=== PATIENT | male | born 1955 | race Caucasian/White ===

== ENCOUNTER 2020-02-27 14:52 | Inpatient (IN) | payer OTHER ==
[~2020-02-27] VITALS: Ht 175.3 cm; Wt 64.2 kg
[~2020-02-27 14:52] MED LIST: ALPRAZOLAM ER1 MG PO; BANOPHEN25 MG PO; BUPROPION XL300 MG PO; BUSPIRONE PO; CLEOCIN HCL300 MG PO; DEPAKOTE ER500 M1 PO; DIVALPROEX SOD500 M1 PO; GENTLE LAXATIVE5 M1 PO; LEVO-T25 MCG PO; LEVOTHYROXINE PO; MAPAP ARTHRITI650 MG PO; MELATONIN10 M3 PO; MELOXICAM15 MG PO; MILK OF MA400 MG/5 M PO; MIRALAX119 GM PO; OLANZAPINE-FLU1 EACH PO; PROTONIX40 MG PO; PROZAC10 M1 PO; PROZAC20 M1 PO; TOPAMAX100 MG PO; TRAZODONE 150150 M1 PO; TRAZODONE HCL100 MG PO; WELLBUTRIN XL150 MG PO; ZESTRIL20 MG PO; ZYPREXA 5 MG TAB5 M1 PO; ZYPREXA20 MG PO
[2020-02-27 17:01] VITALS: BP 141/95
[2020-02-27 19:47] VITALS: BP 114/72
[2020-02-27 20:45] VITALS: BP 114/72
[2020-02-28 09:17] VITALS: BP 133/86
[2020-02-28 20:48] VITALS: BP 144/83
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
[2020-02-29 07:46] VITALS: BP 132/78
[2020-03-01 07:40] VITALS: BP 107/70
[2020-03-01 20:23] VITALS: BP 131/80
[2020-03-02 07:34] VITALS: BP 106/66
[2020-03-02 19:45] VITALS: BP 137/77
[2020-03-02 19:50] VITALS: BP 137/77
[2020-03-02 20:30] VITALS: BP 106/66
[2020-03-03 19:47] VITALS: BP 118/67
[2020-03-03 20:20] VITALS: BP 118/67
[2020-03-04 09:08] VITALS: BP 110/71
[2020-03-04 13:51] LABS: ABSOLUTE NEUTROPHILS 2.3 thou/uL (1.4-8.2); EOSINOPHILS 2.1 % (0.0-3.0); HEMATOCRIT 42.9 % (42.0-52.0); HEMOGLOBIN 14.4 gm/dL (14.0-18.0); LYMPHOCYTES 42.2 % (24.0-44.0); MCH 33.5 pg (26.0-34.0); MCHC 33.5 g/dL (28.0-37.0); MCV 99.9 fL (80.0-100.0); MONOCYTES 7.3 % (1.0-8.0); PLATELET COUNT 146 thou/uL (150-400); POLYS 47.4 % (36.0-66.0); RBC 4.29 mil/uL (4.50-6.00); RDW 13.9 % (10.5-14.5); WBC 4.9 thou/uL (4.0-11.0)
[2020-03-04 13:54] LABS: ALBUMIN 3.8 g/dL (3.4-5.0); CALCIUM 9.6 mg/dL (8.5-10.1); CREATININE 1.1 mg/dL (0.7-1.3); MAGNESIUM 2.5 mg/dL (1.8-2.4); POTASSIUM 4.4 mmol/L (3.5-5.1); TOTAL BILIRUBIN 0.3 mg/dL (0.2-1.0); TOTAL PROTEIN 7.7 g/dL (6.4-8.2)
[2020-03-04 14:21] LABS: TSH 0.833 uIU/mL (0.358-3.740)
[2020-03-04 19:17] VITALS: BP 127/77
[2020-03-04 23:02] VITALS: BP 127/77
[2020-03-05 09:13] VITALS: BP 119/81
[2020-03-05 20:47] VITALS: BP 151/85
[2020-03-06 09:16] VITALS: BP 115/72
[2020-03-06 20:05] VITALS: BP 113/71
[2020-03-07 06:20] VITALS: BP 128/80
[2020-03-07 13:29] VITALS: BP 144/88
[2020-03-07 19:51] VITALS: BP 146/91
[2020-03-07 21:30] VITALS: BP 146/91
[2020-03-08 07:38] VITALS: BP 97/64
[2020-03-08 22:30] VITALS: BP 120/70
[2020-03-09 07:00] VITALS: BP 95/31
[2020-03-09 20:23] VITALS: BP 145/84
[2020-03-10 08:49] VITALS: BP 110/77
[2020-03-10] MEDS ORDERED: DEPAKOTE500 MG PO (08:59)
[2020-03-10] MEDS ORDERED: TRAZODONE HCL50 MG PO (09:00)
[2020-03-10] MEDS ORDERED: ZYPREXA 5 MG TAB5 M1 PO ×2 (09:00)
[2020-03-10 09:01] VITALS: BP 110/77
[2020-03-10] MEDS ORDERED: ZYPREXA 5 MG TAB5 MG PO (09:01)
[2020-03-10] MEDS ORDERED: B-12500 MCG PO (09:06)
[2020-03-10] MEDS ORDERED: VITAMIN D325 MC1 PO (09:06)
[2020-03-10] MEDS ORDERED: FOLIC ACID1 MG PO (09:06)
[2020-03-10] MEDS ORDERED: HALDOL 0.5 MG0.5 MG PO (09:18)
== END 2020-03-10 10:00 | DRG 885 ==
LOC: SBH
PROVIDERS: Internal Medicine; ADMIT Psychiatry & Neurology Psychiatry; ATTEND Psychiatry & Neurology Psychiatry
DX: F25.0 Schizoaffective disorder, bipolar type (principal); R45.851 Suicidal ideations; F29 Unspecified psychosis not due to a substance or known physiological condition; E03.9 Hypothyroidism, unspecified; K21.9 Gastro-esophageal reflux disease without esophagitis; I10 Essential (primary) hypertension; M19.90 Unspecified osteoarthritis, unspecified site; J44.9 Chronic obstructive pulmonary disease, unspecified; F32.9 Major depressive disorder, single episode, unspecified; E53.8 Deficiency of other specified B group vitamins; D69.6 Thrombocytopenia, unspecified; Z20.828 Contact with and (suspected) exposure to other viral communicable diseases
CPT/HCPCS: 10880